=== PATIENT | male | born 1945 | race Caucasian/White ===

== ENCOUNTER 2019-04-28 23:57 | Inpatient (IN) ==
[~2019-04-28 23:57] MED LIST: ALBUTEROL NEB ONE
[2019-04-29 00:08] LABS: BE 8.7 mmoll (-3.0-3.0); BLOOD TYPE ARTERIAL; HCO3-(ACT) 31.7 mmoll (20.0-26.0); METHB 1.1 % (0.0-1.5); O2(CT) 22.2 mL/dL (15.0-23.0); O2HB 96.5 % (95.0-99.0); PO2(98.6) 460 mmHg (60-100); SAMPLE BLOOD; SAO2 99.2 % (95.0-100.0); THB 15.5 g/dL (11.5-17.4); pH(98.6) 7.33 (7.35-7.45)
[2019-04-29] MEDS ORDERED: ALBUTEROL NEB INH ONE (00:24)
[2019-04-29 00:33] LABS: ALLEN TEST NO; MODALITY BI PAP; PCO2(98.6) 72 mmHg (35-45)
[2019-04-29 01:19] LABS: BASO# 0.02 X1000 (0.0-0.2); BASO% 0.1 % (0.0-0.8); HEMATOCRIT 43.5 % (42.0-52.0); HEMOGLOBIN 13.5 g/dL (14.0-18.0); IMM GRAN# 0.06 X1000 (0.0-0.04); IMM GRAN% 0.4 % (0.0-0.5); LYMPH# 0.69 X1000 (1.2-3.4); LYMPH% 4.9 % (20.5-51.1); MCH 31.4 PG (27-31); MCV 101.2 FL (81-99); MONO# 0.77 X1000 (0.11-0.59); MONO% 5.4 % (1.7-9.3); MPV 8.7 FL (7.4-10.4); NEUT# 12.61 X1000 (1.4-6.5); NEUT% 89.2 % (42.2-75.2); PLT 312 X1000 (130-400); RDW 12.6 % (11.5-14.5); WBC 14.15 X1000 (4.8-10.8)
[2019-04-29 01:53] LABS: AGAP 18; ALBUMIN 3.9 g/dL (3.5-5.0); ALKALINE PHOSPHATASE 54 U/L (32-122); BUN 26 mg/dL (8-22); CALCIUM 8.9 mg/dL (8.8-10.2); CHLORIDE 96 mmol/L (98-107); COSMO 291; CREATININE 1.1 mg/dL (0.7-1.2); ESTIMATED GFR > 60; GLUCOSE 119 mg/dL (70-104); GOT 63 U/L (10-34); GPT 25 U/L (10-44); POTASSIUM 3.4 mmol/L (3.5-5.1); SODIUM 143 mmol/L (136-145); TCO2 29 mmol/L (25-35)
[2019-04-29 02:02] LABS: CK PROFILE 359 U/L (24-204)
[2019-04-29 02:05] LABS: UR AMPHETAMINES QUAL NONE DETECTED (NONE DETECT); UR BARBITUATES QUAL NONE DETECTED (NONE DETECT); UR BENZODIAZEPIN QUAL NONE DETECTED (NONE DETECT); UR CANNABINOIDS QUAL NONE DETECTED (NONE DETECT); UR COCAINE QUAL NONE DETECTED (NONE DETECT); UR METHADONE QUAL NONE DETECTED (NONE DETECT); UR METHAMPHETAMINE QUAL NONE DETECTED (NONE DETECT); UR OPIATES QUAL PRESUMPTIVE POSITIVE (NONE DETECT); UR OXYCODONE QUAL PRESUMPTIVE POSITIVE (NONE DETECT); UR PCP QUAL NONE DETECTED (NONE DETECT); UR PROPOXYPHENE QUAL NONE DETECTED (NONE DETECT); UR TCA QUAL NONE DETECTED (NONE DETECT)
[2019-04-29 02:19] LABS: CK INDEX 4.7 (0.0-2.5); CK-MB 16.94 ng/mL (0.0-5.0)
--- NOTE | 2019-04-29 02:28 | EKG Report ---
Test Performed on : 04/29/2019 02:12:22 AM Test Reason : SOB Blood Pressure : / mmHG Vent. Rate : 081 BPM Atrial Rate : 081 BPM P-R Int : 148 ms QRS Dur : 082 ms QT Int : 430 ms P-R-T Axes : 076 051 064 degrees QTc Int : 499 ms Sinus rhythm. with occasional premature ventricular complexes. and premature atrial complexes. T wave abnormality, consider anterior ischemia Abnormal ECG When compared with ECG of 08-JUL-2017 07:23, premature ventricular complexes. are now present premature atrial complexes. are now present Vent. rate has increased BY 27 BPM QT has lengthened Unconfirmed Result
--- NOTE | 2019-04-29 05:44 | Diag Imaging Result Doc PS360 ---
EXAM: CHEST-1 VIEW HISTORY: SOB TECHNIQUE: Single view COMPARISON: 08/14/2017 FINDINGS: The lungs are well expanded. The heart is not enlarged. The vessels are not distended. There are mild increased interstitial markings in the right lung base. No consolidation. No effusion identified. There are old left rib fractures. IMPRESSION: Right basilar atelectasis versus a small infiltrate. Electronically signed by Allen Hernandez 04/29/2019 5:42 AM
--- NOTE | 2019-04-29 05:45 | Diag Imaging Result Doc PS360 ---
EXAM: CHEST-PORTABLE HISTORY: status post attempt for central line TECHNIQUE: Single view COMPARISON: 1:14 AM FINDINGS: The appearance of the chest is unchanged since the prior exam. No central line is present. No pneumothorax identified. IMPRESSION: No postprocedural complications identified. Electronically signed by Allen Hernandez 04/29/2019 5:43 AM
[2019-04-29] MEDS ORDERED: NS 250 ML ONE (08:01)
[2019-04-29] MEDS ORDERED: TYLENOL PO PRN (08:22)
[2019-04-29] MEDS ORDERED: ZOFRAN IV PRN (08:22)
[2019-04-29] MEDS ORDERED: SALINE LOCK IV FLUID XX ONE (08:22)
[2019-04-29] MEDS ORDERED: NS 1,000 ML IV SCH (08:30)
[2019-04-29] MEDS ORDERED: LASIX IV ONE ×2 (08:36→09:38)
[2019-04-29] MEDS ORDERED: SOLU-MEDROL IV ONE (09:00)
[2019-04-29] MEDS ORDERED: HYDROCODONE BITARTRATE PO SCH (09:00)
--- NOTE | 2019-04-29 09:18 | EKG Report ---
Test Performed on : 04/29/2019 09:11:57 AM Test Reason : sob Blood Pressure : / mmHG Vent. Rate : 074 BPM Atrial Rate : 074 BPM P-R Int : 144 ms QRS Dur : 088 ms QT Int : 502 ms P-R-T Axes : 091 075 075 degrees QTc Int : 557 ms Normal sinus rhythm. Prolonged QT Abnormal ECG When compared with ECG of 29-APR-2019 02:12, (Unconfirmed) premature ventricular complexes. are no longer present premature atrial complexes. are no longer present QT has lengthened Confirmed by Soha Trevino MD ([id number]) on 04/29/2019 4:20:31 PM
[2019-04-29] MEDS: ROCEPHIN 1 GM in NS 50 ML IV SCH (09:41)
[2019-04-29] MEDS: CRESTOR PO SCH (09:42)
[2019-04-29] MEDS: ASPIRIN EC PO SCH (09:42)
[2019-04-29] MEDS: NORCO-10 PO PRN ×3 (09:42→20:35)
[2019-04-29] MEDS: ZANAFLEX PO SCH ×3 (09:42→20:32)
[2019-04-29] MEDS: LOVENOX SUBQ SCH (09:46)
[2019-04-29] MEDS ORDERED: LEVAQUIN 750 MG/D5W 750 MG/150 ML IVPB IV SCH (10:30)
[2019-04-29 10:36] LABS: HEMOGLOBIN A1C 5.3 % (4.8-6.0)
[2019-04-29] MEDS: DUONEB (A & A) INH SCH ×4 (10:43→23:28)
[2019-04-29 10:49] LABS: TSH 0.3 uIUmL (0.27-4.20)
[2019-04-29 10:53] LABS: CK-MB 13.01 ng/mL (0.0-5.0); FREE T4 1.95 ng/dL (0.93-1.70)
--- NOTE | 2019-04-29 12:12 | HISTORY AND PHYSICAL ---
ADDENDUM REPORT: The patient is seen and examined by me face to face. Laboratory, vital signs, and images were reviewed. The patient presented and was admitted due to shortness of breath. Chest x-ray showed right basilar atelectasis versus small infiltrate. As per the patient, he has been coughing up phlegm since last Sunday, and he has been feeling short of breath since last Sunday as well. Normally he uses oxygen at home. He has a strong history of COPD. He has been placed on the BiPAP machine. He is hypercarbic, and he was also admitted due to hypoxemic respiratory failure. It is reported that the oxygen was around 76. We will continue with the BiPAP treatment. We will continue with steroids, antibiotics, breathing treatment, pulmonary toilet. Pulmonary Department has been consulted. We will monitor this patient closely in the ICU. I agree with the rest of the nurse practitioner's Assessment and Plan. cc: Yobani Catherine MD
--- NOTE | 2019-04-29 12:56 | HISTORY AND PHYSICAL ---
PRIMARY CARE PROVIDER: Dr. Kathleen Madrigal. PRIMARY PAIN PHYSICIAN: Dr. Perez in [place]. CHIEF COMPLAINT: Shortness of breath. HISTORY OF PRESENT ILLNESS: Mr. Chandan Levine is a 73-year-old male with a medical history of COPD on home oxygen, CKD stage III, hypertension, chronic pain syndrome, hyperlipidemia, who presents with complaints of shortness of breath. He states on Sunday, which is around 5 days ago, he started having weakness, decreased appetite, increased shortness of breath, was having productive green-brown phlegm and noticed that he had lower extremity swelling. He denied any chest pain, fevers. No nausea, vomiting, or diarrhea. Essentially no other symptoms other than he could not really lay flat to sleep. Here he is found on his chest x-ray to have right basilar infiltrate, elevated white blood cell count. He is also having significant increased work of breathing requiring BiPAP ventilation and he also had a significant elevation in his proBNP. There was elevation in his troponin; however, he did deny chest pain. He does have shortness of breath and lower extremity edema. He was transferred from [facility] to the ICU here at [facility] and we will continue to evaluate and treat. PAST MEDICAL HISTORY: 1. Skin cancer. 2. Hypertension. 3. COPD on 2 L home oxygen. 4. CKD stage III. 5. Chronic pain syndrome. 6. Hyperlipidemia. PAST SURGICAL HISTORY: 1. Bilateral inguinal hernia repairs. 2. Skin cancer excision on the face. 3. Cervical radiofrequency ablation of C4, 5 and 6. SOCIAL HISTORY: Quit smoking in 1998. At that time, he smoked less than 2 packs per day. He started at the age of 14. He continues to dip 1 can about every 3 to 4 days. No alcohol. No illicit drug use. He does not work, not , no kids, and states he has no difficulties with walking. FAMILY HISTORY: Mother had a heart attack at 56 and it killed her. Father from alcoholism. ALLERGIES: No known drug allergies. HOME MEDICATIONS: 1. Neurontin 400 mg p.o. every 8 hours. 2. Aspirin 81 mg p.o. daily. 3. Albuterol Respimat 20-100 mcg inhaled 4 times a day. 4. Hydrocodone bitartrate extended release 20 mg p.o. daily. 5. Ibuprofen 800 mg p.o. t.i.d. 6. [place] 10 one tablet p.o. 4 times a day. 7. Rosuvastatin 40 mg p.o. daily. 8. Vascepa 2 capsules p.o. twice daily. 9. Zanaflex 4 mg p.o. t.i.d. REVIEW OF SYSTEMS: Fourteen point review of systems are complete and all were negative except for those mentioned in above HPI. PHYSICAL EXAMINATION: VITAL SIGNS: Temperature 98 degrees, heart rate 80, respiratory rate 18, blood pressure 151/94, O2 saturation 100% on BiPAP. GENERAL: Mr. Chandan Levine is a 73-year-old male. He is in no acute distress. He is able answer questions appropriately. HEENT: Atraumatic, normocephalic. Pupils equal, round, reactive to light. Extraocular movements intact. Mucous membranes are dry. NECK: Trachea midline. CARDIOVASCULAR: S1, S2. Regular rate and rhythm. No rubs, gallops, murmurs. He has 1+ lower extremity edema. He has +2 dorsalis and radial pulses. Negative for JVD or carotid bruits at 20 degree incline. PULMONARY: Inspiratory wheezes anteriorly noted throughout. Tolerating BiPAP. No accessory muscle use or work of breathing noted. He does have somewhat of a barrel chest for a small frame. GASTROINTESTINAL: Soft, nontender, nondistended. Positive bowel sounds x4. EXTREMITIES: Moves all extremities equally. Full range of motion. NEUROLOGIC: Alert and oriented x3. Follows commands. Sensory is intact. SKIN: Warm, dry, intact. LABORATORY DATA: White blood cells 14,000, hemoglobin 13, hematocrit 43, platelet count 312,000. ABGs, pH 7.33, pCO2 of 72, PO2 460, bicarb is 31, base excess is 8.7, saturation 96%. Lactate was 2.3, BiPAP 100%, 18/6. Sodium 143, potassium 3.4, BUN 26, creatinine is 1.1, glucose 119, calcium 8.9. Bilirubin is 1.00, AST 63, ALT 25. CK 258, MB is 16. Troponin initially was 138, it dropped down to 121. CRP is 32. ProBNP is 21,713. Albumin 3.9. Triglycerides 116, cholesterol total is 81, LDL 19, HDL 39. Serum lactate is 1.0. Urine drug screen positive for opiates and oxycodone. IMAGING: Chest x-ray, right basilar atelectasis versus a small infiltrate. First EKG, normal sinus rhythm, rate 81, QTc is 499. There were PVCs and PACs and no ST elevations. This morning at 8:36, normal sinus rhythm, rate 74, QTc was up to 557. There were no PACs or PVCs on this one, no ST elevations or depressions. ASSESSMENT AND PLAN: 1. Chronic obstructive pulmonary disease exacerbation requiring BiPAP. We will do steroids, nebulizers and antibiotics. 2. Right basilar pneumonia with leukocytosis and originally with mild sepsis, the lactate was 2.3 but that has improved, it is back to normal. Again, he is on antibiotics, originally it was Rocephin and Levaquin ordered, but the Levaquin has been discontinued secondary to the prolonged QTc, and we will get a sputum culture. 3. Possibly acute congestive heart failure. He does not have a history of it, but he has lower extremity edema and he has an elevated proBNP. He denied any chest pain, just shortness of breath and lower extremity edema. Gave him a 1 time dose of 40 of Lasix. 4. Chronic pain syndrome. We will continue home medications. We will hold off on the ibuprofen. 5. Hyperlipidemia. Continue Vascepa and the statin. 6. Deep venous thrombosis prophylaxis. Lovenox. Dictated by MARY JO Luna for Yobani Catherine MD cc: MARY JO Luna MD
[2019-04-29] MEDS: ICOSAPENT ETHYL PO SCH ×2 (13:10→20:32)
[2019-04-29] MEDS: NEURONTIN PO SCH ×2 (14:03→20:32)
[2019-04-29] MEDS: ZITHROMAX 500 MG/NS 500 MG/250 ML IVPB IV SCH (14:03)
--- NOTE | 2019-04-29 15:03 | PULMONOLOGY CONSULTATION ---
DATE: 04/29/2019 REQUESTING PROVIDER: MARY JO Luna. REASON FOR CONSULTATION: Respiratory failure, on BiPAP. HISTORY OF PRESENT ILLNESS: This is a 73-year-old, male with a medical history of COPD, on continuous home oxygen therapy, hypertension, polysubstance abuse, chronic kidney disease, hepatitis C, anisocoria, chronic pain syndrome, hyperlipidemia, and skin cancer. He presents today complaining of shortness of breath with productive green-brown phlegm and bilateral lower extremity edema for 5 days. Initial workup in the ER revealed COPD exacerbation, right basilar pneumonia with leukocytosis, mild sepsis, and possible acute congestive heart failure. He was transferred from [place] [facility] to ICU in our facility for further evaluation and management. The patient has been on BiPAP since presentation. He has been on Levaquin and ceftriaxone with IV Solu- Medrol, diuretic and DuoNeb. ABG this morning showed respiratory acidosis with hypercapnia, elevated troponin T high-sensitivity which is trending down slowly, elevated C- reactive protein, creatine kinase, CK-MB, free T4, and leukocytosis. His proBNP is up to 21,713. The patient is lying in bed, on a BiPAP mask, with no acute distress noted at this time. He is awake and alert. He reports general weakness, poor appetite, shortness of breath, productive cough, and pedal edema, but no chest pain, fever, nausea, vomiting, bowel habit change, urination discomfort. He also has orthopnea, and he cannot tolerate lying flat. PAST MEDICAL/SURGICAL HISTORY: 1. Chronic obstructive pulmonary disease, on continuous home oxygen at 2 L. 2. Hypertension. 3. Polysubstance abuse, including alcohol abuse. 4. Chronic kidney disease, stage III. 5. History of skin cancer, status post skin cancer removal. 6. History of hepatitis C, diagnosed on 07/17/2017. 7. Anisocoria. 8. Chronic pain syndrome, on hydrocodone and [place] at home. 9. Hyperlipidemia. 10. Status post hernia repair. 11. Status post EGD with biopsy secondary to history of GI bleeding. SOCIAL HISTORY: The patient is a former smoker, and quit smoking in 1998. He used to smoke less than 2 packs per day since age of 14. He continues to dip 1 can about every 3 to 4 days. He does have history of alcohol abuse and polysubstance abuse. He does not work. He is not . He has no kids. FAMILY HISTORY: Positive for heart disease and alcoholism. ALLERGIES: No known drug allergies. REVIEW OF SYSTEMS: A 10-point review of systems was conducted, and the pertinent is listed within the HPI, otherwise noncontributory. PHYSICAL EXAMINATION: Vital Signs: Temperature 98.8 degrees, blood pressure 130/88, pulse 78, respiratory rate 17, oxygen saturation 100% on BiPAP 50%, 18/6. General: Lying in bed on a BiPAP mask. No acute distress noted. Able to answer questions appropriately. HEENT: Atraumatic, normocephalic. Trachea midline. Mucosa pink and moist. Respiratory: Even and unlabored. Symmetrical excursion. Auscultation revealed diminished breathing sounds bilaterally. Cardiovascular: Regular rate and rhythm with S1 and S2 appreciated. Gastrointestinal: Soft, nontender, obese. Bowel sounds active in all 4 quadrants. Extremities: No pedal edema. No cyanosis. No clubbing. Neurologic: Alert and oriented x3. Speech fluent. Follows commands. Neurologic: Awake and alert, able to answer simple questions and follow simple commands. Speech fluent. LABORATORY DATA: White blood cells 14.15, hemoglobin 14.5, hematocrit 43.5, platelets 312,000. Sodium 143, potassium 3.4, chloride 96, carbon dioxide 29, BUN 26, creatinine 1.1, glucose 119. Creatine kinase 258. CK-MB 13.01. Troponin T high-sensitivity 121. C-reactive protein 32.58. ProBNP 21,713. Free T4 of 1.95. Drug screen showed positive for opium and oxycodone. IMAGING DATA: Chest x-ray early this morning showed right basilar atelectasis versus small infiltrate. ASSESSMENT: This is a 73-year-old, male with a medical history of chronic obstructive pulmonary disease on continuous home oxygen therapy, hypertension, polysubstance abuse, including alcohol abuse, chronic kidney disease stage 3, skin cancer, hepatitis C, anisocoria, chronic pain syndrome, and hyperlipidemia. He has been admitted from [place] [facility] to intensive care unit in our facility with chronic obstructive pulmonary disease exacerbation, right basilar pneumonia with leukocytosis, possible acute congestive heart failure, with proBNP elevation and troponin T high-sensitivity elevation. 1. Acute on chronic hypoxemic respiratory failure. 2. Acute hypercapnic respiratory failure. 3. Chronic obstructive pulmonary disease exacerbation. 4. Suspected right basilar pneumonia versus right basilar atelectasis based on the chest x-ray. 5. Acute on chronic congestive heart failure. PLAN: 1. Supplemental oxygen with BiPAP at bedtime as needed. We titrated oxygen and BiPAP setting to the patient's needs per clinical protocol. Will monitor the patient's response closely. 2. Antibiotics, including azithromycin and ceftriaxone. Levaquin has been discontinued, and azithromycin started from today. 3. IV Solu-Medrol has been ordered. 4. Diuresis with Lasix as tolerated. 5. Echocardiogram has been ordered. 6. Follow up with ABG, CBC, CMP, series of lactic plasma, series of CK profile, troponin T high- sensitivity, sputum culture, blood culture, and chest x-ray. 7. Will start Cardiology consultation. 8. Further recommendations pending hospital course. Thank you for the courtesy of this consult. Dr. Colón did the examination, evaluation, management, and orders. MARY JO did the dictation for Dr. Colón according to direction. Total evaluation time in minutes: 33. Dictated by MARY JO Michelle for Jaz Colón MD cc: MARY JO Michelle MD [facility]
[2019-04-29] MEDS: SOLU-MEDROL IV SCH (17:02)
[2019-04-29 17:26] LABS: URINE SOURCE CATH
[2019-04-29 17:55] LABS: BILIRUBIN URINE NEGATIVE (NEGATIVE); BLOOD URINE MODERATE (NEGATIVE); COLOR ORANGE; GLUCOSE URINE NEGATIVE (NEGATIVE); KETONE URINE NEGATIVE (NEGATIVE); LEUKOCYTES URINE LARGE (NEGATIVE); NITRITE URINE POSITIVE (NEGATIVE); PH URINE 7.5; PROTEIN URINE 100 mg/dL (NEGATIVE); SP GRAVITY URINE 1.008; TURBIDITY URINE TURBID (CLEAR); UROBILINOGEN URINE NORMAL (NORMAL)
[2019-04-29 18:16] LABS: UR EPITHELIAL CELLS >10 /HPF (<10); URINE BACTERIA 4+ /HPF; URINE RBC 20-40 /HPF (<10); URINE WBC TNTC /HPF (<10)
[2019-04-29 18:17] LABS: URINE CASTS GRANULAR PRESENT; URINE CRYSTALS TRIPLE PHOS PRESENT; URINE YEAST NONE SEEN
[2019-04-29 18:18] LABS: URINE SMALL ROUND CELLS NONE SEEN
--- NOTE | 2019-04-29 18:40 | CARDIOLOGY CONSULTATION ---
DATE: 04/29/2019 CONSULTATION REQUESTED BY: Hospitalist service. REASON FOR CONSULT: Reason is dyspnea, abnormal troponin. HISTORY OF PRESENT ILLNESS: Mr. Levine is a 73-year-old male who presents to the emergency room with increasing dyspnea for several days. He has become very weak. He has not experienced any specific chest pain or angina. Upon presentation they did the usual round of testing including an EKG that shows some abnormal repolarization in the right precordial leads. Chest x-ray shows right basilar atelectasis versus small infiltrate. [place] [address] mcg/mL. His C-reactive protein was 32.58 mg/L. CPK 258, index was 5%, troponin high sensitivity 121 ng/L. Prior hospital admission in July 2017. The patient's proBNP level back then was not checked. His CPK back then was very high at 8385 on admission and then it went down to 672 units. CK index back then was 1.8%. Troponins back then were elevated at 0.781, then 0.544 and the last one was 0.322. His EKGs at that time showed some abnormality in leads V1, V2. At any rate, the patient has been given a BiPAP mask because his blood gases on this admission showed a PCO2 of 72 mmHg, pH is 7.33. He is in ICU, undergoing respiratory management. PAST MEDICAL HISTORY: Positive for advanced COPD. He also has hypertension, chronic pain syndrome, hyperlipidemia, and hepatitis C which to our knowledge has not been treated. SURGICAL HISTORY: He has had inguinal hernia repair. Skin cancer excision and cervical radiofrequency ablation of C4-5 and 6. SOCIAL HISTORY: He is and disabled. Lives at home. He is a smoker, quit in 1998. FAMILY HISTORY: Mother had myocardial infarction. Father had no coronary disease. ALLERGIES: Negative. HOME MEDICATIONS: Listed at the time of this admission included aspirin 81 mg daily, gabapentin 400 every 8 hours, hydrocodone extended release daily, ibuprofen 800 three times a day, rosuvastatin 40 mg daily, tizanidine 4 mg 3 times a day. REVIEW OF SYSTEMS: He has no specific history of VA or acute coronary syndrome or CHF. Prior CT scans of the chest have been done. The last one on record is from 2014. They reported the presence of coronary artery calcification back then. So, the patient probably has some degree of coronary atherosclerosis. PHYSICAL EXAMINATION: Vital signs: Blood pressure is 118/73, pulse 63, respirations 14, temperature 96 degrees. The patient is awake, follows commands. He has a BiPAP system. HEENT: Unremarkable. Chest: Diminished breath sounds diffusely. Heart: Sounds are distant, regular. No gallop or murmurs noted. Abdomen: Soft, nontender. Extremities: Showed no obvious edema. Pulses are diminished. Neurologic: Nonfocal. Moves 4 extremities. IMPRESSION: 1. Patient who presents with respiratory failure, hypercarbic. He is on a BiPAP system. 2. Elevation of cardiac enzymes. This is more than likely a marker of the presence of coronary atherosclerosis. At this time, the patient really does not seem to have an acute coronary syndrome. 3. Hypertension. 4. Tobacco user with advanced chronic obstructive pulmonary disease. 5. Hyperlipidemia. 6. Hepatitis C, active, untreated. 7. Chronic pain syndrome. RECOMMENDATION: At this time, I will suggest to do follow-up EKG. I believe they have ordered an echocardiogram. We will review it. The cardiac enzymes will be rechecked in the morning. We will do a followup EKG. Further advice will be forthcoming. Unless there is a clear indication of wall motion abnormality on the echo or further ischemic changes on the EKG with further rise on the CPK and troponins, at this time we are not going to carol ischemic workup. The patient will be referred back to his usual doctors for subsequent follow-up thereafter. Please call us if you have any questions or concerns. cc: Saleem Giron MD MTDD
[2019-04-29] MEDS: PULMICORT INH SCH (19:48)
--- NOTE | 2019-04-29 23:28 | ECHO REPORT ---
ORDER DATE: 04/29/2019 MEASUREMENTS: Septal thickness 1.1, left ventricular internal diameter in diastole 3.4, posterior wall thickness 1.1. Left ventricular internal diameter in systole 2.4, aortic root 3.2, left atrium 3.4. SUMMARY: 1. Technically difficult study due to limited acoustic window quality. 2. Aortic valve is trileaflet and opens normally on 2-dimensional images. Peak gradient across the aortic valve is less than 5 mmHg. Mitral, tricuspid and pulmonic valves are without evidence of structural abnormality. There is trace tricuspid regurgitation. The aortic root is normal in size. 3. Normal left ventricular chamber size with borderline concentric left ventricular hypertrophy is demonstrated. The estimated left ventricular ejection fraction appears to be at least 60%. No regional wall motion abnormality is evident. Doppler suggests grade 1 left ventricular diastolic dysfunction. The right ventricle appears mildly enlarged with grossly preserved right ventricular systolic function. The right atrium appears mildly enlarged. The left atrium is normal in size. 4. No pericardial effusion. 5. Appearance of inferior vena cava suggests elevated central venous pressure. cc: MD Odessa Baig CRNP
[2019-04-30] MEDS: SOLU-MEDROL IV SCH ×3 (02:36→17:09)
[2019-04-30] MEDS: DUONEB (A & A) INH SCH ×6 (03:10→23:12)
[2019-04-30] MEDS: NEURONTIN PO SCH ×3 (04:31→20:11)
[2019-04-30] MEDS: NORCO-10 PO PRN ×4 (04:31→20:15)
[2019-04-30 04:46] LABS: ALLEN TEST YES; BE 16.9 mmoll (-3.0-3.0); BLOOD TYPE ARTERIAL; HCO3-(ACT) 38.1 mmoll (20.0-26.0); METHB 0.9 % (0.0-1.5); O2(CT) 18.1 mL/dL (15.0-23.0); O2HB 96.3 % (95.0-99.0); PO2(98.6) 99 mmHg (60-100); SAMPLE BLOOD; SAO2 98.3 % (95.0-100.0); THB 13.3 g/dL (11.5-17.4); pH(98.6) 7.47 (7.35-7.45)
[2019-04-30 04:57] LABS: PCO2(98.6) 60 mmHg (35-45)
[2019-04-30 04:58] LABS: MODALITY BI PAP
[2019-04-30 05:32] LABS: BASO# 0.01 X1000 (0.0-0.2); BASO% 0.2 % (0.0-0.8); HEMATOCRIT 38.6 % (42.0-52.0); HEMOGLOBIN 12.1 g/dL (14.0-18.0); IMM GRAN# 0.02 X1000 (0.0-0.04); IMM GRAN% 0.3 % (0.0-0.5); LYMPH# 0.24 X1000 (1.2-3.4); LYMPH% 4.1 % (20.5-51.1); MCH 31.6 PG (27-31); MCHC 31.3 g/dL (33-37); MCV 100.8 FL (81-99); MONO# 0.14 X1000 (0.11-0.59); MONO% 2.4 % (1.7-9.3); MPV 8.9 FL (7.4-10.4); NEUT# 5.42 X1000 (1.4-6.5); PLT 223 X1000 (130-400); RBC 3.83 XMIL (4.7-6.1); RDW 12.5 % (11.5-14.5); WBC 5.83 X1000 (4.8-10.8)
[2019-04-30 05:58] LABS: ALBUMIN 3.5 g/dL (3.5-5.0); CALCIUM 8.6 mg/dL (8.8-10.2); CREATININE 1.4 mg/dL (0.7-1.2); POTASSIUM 2.9 mmol/L (3.5-5.1); TOTAL BILIRUBIN 0.45 mg/dL (0.20-1.00); TOTAL PROTEIN 6.9 g/dL (6.3-8.3)
[2019-04-30] MEDS: PROTONIX PO SCH (06:00)
[2019-04-30] MEDS ORDERED: KLOR-CON PO ONE (06:45)
--- NOTE | 2019-04-30 07:21 | EKG Report ---
Test Performed on : 04/30/2019 06:38:07 AM Test Reason : dyspnea Blood Pressure : / mmHG Vent. Rate : 066 BPM Atrial Rate : 066 BPM P-R Int : 126 ms QRS Dur : 094 ms QT Int : 510 ms P-R-T Axes : 090 100 095 degrees QTc Int : 534 ms Suspect arm lead reversal, interpretation assumes no reversal Normal sinus rhythm. Rightward axis ST & T wave abnormality, consider anterior ischemia Prolonged QT Abnormal ECG When compared with ECG of 29-APR-2019 09:11, No significant change was found Confirmed by Soha Trevino MD ([id number]) on 04/30/2019 8:15:37 AM
[2019-04-30 07:25] LABS: LYMPHS 8 % (21-51); SEGS 92 % (42-75)
--- NOTE | 2019-04-30 07:27 | Diag Imaging Result Doc PS360 ---
CHEST-PORTABLE - 04/30/2019 INDICATION: dyspnea COMPARISON: 04/29/2019 FINDINGS: There is a right PICC line in good position with the catheter tip in the mid SVC. Stable hyperexpanded lungs compatible with COPD. There has been improvement in the faint scattered atelectasis in the lung bases. No substantial infiltrates. No pneumothorax or pleural effusion. Heart size is borderline enlarged. IMPRESSION: COPD with mild atelectasis or scarring in the lung bases. Electronically signed by London Xie 04/30/2019 7:25 AM
[2019-04-30] MEDS: PULMICORT INH SCH ×2 (07:53→19:25)
--- NOTE | 2019-04-30 07:53 | PROGRESS NOTE ---
DATE: 04/30/2019 SUBJECTIVE: The patient seems to be feeling better today. He is breathing better. He is still wheezing bilaterally. His x-ray looks a little bit better compared with yesterday. He does have a severe COPD and he is on home O2. OBJECTIVE: Vital Signs: Temperature 97.9 degrees, pulse 77, respiratory rate 16, blood pressure 118/73, oxygen saturation 97% on 3 L of nasal cannula. HEENT: Head normocephalic, no trauma. PERRLA. Neck: Supple. I do not see JVD. Central trachea. Chest: Decreased breath sounds globally with prolonged expiratory phase. Coarse breath sounds mostly at the bases with expiratory wheezing. Abdomen: Soft, nontender, nondistended. No hepatosplenomegaly. Extremities: No edema, no clubbing, no cyanosis. Neurological exam: The patient is awake, he is alert, he is following commands. LABORATORY: WBC 5.8, hemoglobin 12.1, hematocrit 38.6, platelets 223. The pCO2 60. Sodium 142, potassium 2.9, chloride 90, bicarbonate 40. BUN 33, creatinine 1.4, glucose 177, calcium 8.6. AST 40, ALT 21, alkaline phosphatase 45. High sensitivity troponin 75. Albumin 3.5. ASSESSMENT AND PLAN: 1. Severe chronic obstructive pulmonary disease exacerbation. We will continue with the BiPAP machine as needed, breathing treatment, steroids, antibiotics. He does use oxygen at home around 2 to 3 liters. We will continue with same management. He seems to be feeling better. 2. Right basilar pneumonia with leukocytosis and sepsis on presentation. Continue antibiotics. He has been placed on ceftriaxone and azithromycin, which I will continue for now. White blood cell count improved. 3. Possible acute congestive heart failure. Probably he does have some diastolic dysfunction due to his severe chronic obstructive pulmonary disease. Echocardiogram showed a grade 1 left ventricular diastolic dysfunction. The right ventricle appears mildly enlarged with grossly preserved right ventricular systolic function. So, probably overall this issue is just related to the chronic obstructive pulmonary disease and pneumonia. 4. Polysubstance abuse including alcohol use. This patient has been highly advised against alcohol and polysubstance abuse. I will continue with daily cessation education. 5. His urinalysis showed bacteria, nitrates, and white blood cells as well. He has been placed on antibiotics. His urine culture is pending, but he does not have any symptoms at this moment. 6. Chronic pain syndrome. Continue home medications. 7. Hyperlipidemia. Continue with same management. 8. Deep vein thrombosis prophylaxis with Lovenox. 9. Chronic kidney disease. His creatinine is around his baseline. He has been up and down at least since 2013. 10. History of skin cancer, status post skin cancer removal. 11. History of hepatitis C diagnosed on 07/17/2017. I am not sure if this has been treated or not. 12. Hypertension, stable. cc: Yobani Catherine MD
[2019-04-30] MEDS: CRESTOR PO SCH (08:00)
[2019-04-30] MEDS: LOVENOX SUBQ SCH (08:00)
[2019-04-30] MEDS: ICOSAPENT ETHYL PO SCH ×2 (08:00→20:11)
[2019-04-30] MEDS: ASPIRIN EC PO SCH (08:01)
[2019-04-30] MEDS: ZANAFLEX PO SCH ×3 (08:01→20:11)
--- NOTE | 2019-04-30 08:33 | CARDIOLOGY PROGRESS NOTE ---
DATE: 04/30/2019 CHIEF COMPLAINT: Shortness of breath and elevation of troponin. SUBJECTIVE: The patient is breathing more comfortably this morning. He definitely feels better. He is on a Ventimask right now getting breathing treatments. OBJECTIVE: Vital signs: Blood pressure is 164/81, temperature 97.9, pulse 83, respirations 17. General: He is awake, alert, no distress. HEENT: Unremarkable. Chest: Diminished breath sounds with some rhonchi bilaterally. Heart: Sounds are regular and rhythmic. I do not hear a gallop or murmur. Abdomen: Nontender. Extremities: Show no edema. Neurologic exam: Follows commands, moves all 4 extremities. BLOOD WORK: Blood gases today: pO2 99, pCO2 60, pH 7.47. Sodium is 142, potassium 2.9, BUN is 33, creatinine 1.4. His troponin high-sensitivity is coming down to 75. Echocardiogram done yesterday shows normal ejection fraction of 60%, no wall motion abnormality. His EKG shows QT prolongation with marked T wave abnormality in precordial leads V1 through V3. That probably suggests right ventricular strain. He has a right axis on the EKG. IMPRESSION: Patient who presented with increasing dyspnea and elevation of troponin levels. Putting the case together, I believe this is probably right ventricular strain due to decompensated chronic obstructive pulmonary disease. He has hypercarbic respiratory failure. The patient has hypokalemia. Because of that and his abnormal EKG, we need to stop Zofran and be careful because he is on azithromycin. That combination of medications and low potassium may lead to serous ventricular arrhythmias. Potassium needs to be replaced. I will go ahead and put him on spironolactone for the next few days to make sure that his potassium remains within normal range. We will follow as needed. At this time given his normal ejection fraction and his hypercarbic respiratory failure, I do not think there is a need any further cardiac investigation. I would probably rely more on what the Pulmonary service has to do and say about his case. Call if you need me for any further intervention. cc: Saleem Giron MD
[2019-04-30] MEDS: ROCEPHIN 1 GM in NS 50 ML IV SCH (09:08)
[2019-04-30] MEDS: ALDACTONE PO SCH (09:08)
[2019-04-30] MEDS: ZITHROMAX 500 MG/NS 500 MG/250 ML IVPB IV SCH (11:05)
[2019-04-30 11:52] LABS: INR 1.06; PROTIME 13.9 Seconds (11.0-16.0)
[2019-04-30 11:53] LABS: PTT 34.2 Seconds (22.3-41.8)
--- NOTE | 2019-04-30 16:26 | PROVIDER PROGRESS NOTE ---
Progress Note Dr. Colón Progress Note/Pulmonary and or critical care Subjective: The patient is lying in bed on room air. He appears asleep, but very easily arousable. He states he is feeling better. He has been on VM 40% since early this morning and tolerates well. No family at the bedside. Input is appreciated from Dr. Martínez and other teams on the case. Objective: Vital Signs: T 97.9 (no fever in last 24 hours). DC 68, RR 18, BP 164/81 and SaO2 96% on VM 40%. I/O -870 ml Physical Examination: General: Lying in bed with no acute distress noted. HEENT: Normocephalic. Trachea midline. Mucosa pink and moist. Chest: Even and unlabored. Symmetrical excursion. Decreased air entry bilaterally. CVS: Regular rate and rhythm with S1 and S2 appreciated. Abdomen: Soft. Obese. Nontender. Normoactive bowel sounds noted. Extremities: No pedal edema. No cyanosis. No clubbing. Neuro: Awake and alert. Able to answer questions and follow commands. Labs and Radiology: Laboratory Results 04/29/19 04/29/19 04/29/19 09:50 17:15 17:26 WBC RBC Hgb Hct MCV MCH MCHC RDW Std Deviation Plt Count MPV Immature Gran % (Auto) Neut % (Auto) Lymph % (Auto) [place] % (Auto) Eos % (Auto) Baso % (Auto) Immature Gran # (Auto) Neut # (Auto) Lymph # (Auto) [place] # (Auto) Eos # (Auto) Baso # (Auto) Segmented Neutrophils Lymphocytes PT 13.9 INR 1.06 PTT (Actin FS) 34.2 Specimen Type Sample Site pH pCO2 pO2 HCO3 Base Excess Oxyhemoglobin ABG O2 Sat (Calculated) ABG O2 Saturation ABG Carboxyhemoglobin ABG Methemoglobin Kris Test A-a O2 Difference Total Hemoglobin Lactate Blood Gas Modality FiO2 % Inspiratory BiPAP Expiratory BiPAP Sodium Potassium Chloride Carbon Dioxide Anion Gap BUN Creatinine Estimated GFR/1.73 m2 BUN/Creatinine Ratio Glucose Calculated Osmolality Calcium Total Bilirubin AST ALT Alkaline Phosphatase Creatine Kinase 191 Troponin T High Sens Total Protein Albumin Globulin Albumin/Globulin Ratio Plasma Lactate Urine Source CATH Urine Color ORANGE Urine Turbidity TURBID Urine pH 7.5 Ur Specific [place] 1.008 Urine Protein 100 A Ur Glucose (Stick) NEGATIVE Ur Ketones (Stick) NEGATIVE Urine Blood MODERATE A Urine Nitrite POSITIVE A Urine Bilirubin NEGATIVE Urobilinogen Dipstick NORMAL Urine Leukocytes LARGE A Urine WBC (Auto) TNTC A Urine RBC (Auto) 20-40 A U Epithel Cells (Auto) >10 A Urine Bacteria (Auto) 4+ Urine Crystals TRIPLE PHOS PRESENT Small Round Cells NONE SEEN Urine Casts GRANULAR PRESENT Urine Yeast-like Cells NONE SEEN 04/29/19 04/30/19 04/30/19 17:26 04:23 04:23 WBC 5.83 RBC 3.83 L Hgb 12.1 L Hct 38.6 L MCV 100.8 H MCH 31.6 H MCHC 31.3 L RDW Std Deviation 12.5 Plt Count 223 MPV 8.9 Immature Gran % (Auto) 0.3 Neut % (Auto) 93.0 H Lymph % (Auto) 4.1 L [place] % (Auto) 2.4 Eos % (Auto) 0.0 Baso % (Auto) 0.2 Immature Gran # (Auto) 0.02 Neut # (Auto) 5.42 Lymph # (Auto) 0.24 L [place] # (Auto) 0.14 Eos # (Auto) 0.00 Baso # (Auto) 0.01 Segmented Neutrophils 92 H Lymphocytes 8 L PT INR PTT (Actin FS) Specimen Type Sample Site pH pCO2 pO2 HCO3 Base Excess Oxyhemoglobin ABG O2 Sat (Calculated) ABG O2 Saturation ABG Carboxyhemoglobin ABG Methemoglobin Kris Test A-a O2 Difference Total Hemoglobin Lactate Blood Gas Modality FiO2 % Inspiratory BiPAP Expiratory BiPAP Sodium 142 Potassium 2.9 L Chloride 90 L Carbon Dioxide 40 H Anion Gap 12 BUN 33 H Creatinine 1.4 H Estimated GFR/1.73 m2 50 BUN/Creatinine Ratio 24 Glucose 177 H Calculated Osmolality 295 Calcium 8.6 L Total Bilirubin 0.45 AST 40 H ALT 21 Alkaline Phosphatase 45 Creatine Kinase 116 Troponin T High Sens 97 H Total Protein 6.9 Albumin 3.5 Globulin 3.4 Albumin/Globulin Ratio 1.0 Plasma Lactate Urine Source Urine Color Urine Turbidity Urine pH Ur Specific [place] Urine Protein Ur Glucose (Stick) Ur Ketones (Stick) Urine Blood Urine Nitrite Urine Bilirubin Urobilinogen Dipstick Urine Leukocytes Urine WBC (Auto) Urine RBC (Auto) U Epithel Cells (Auto) Urine Bacteria (Auto) Urine Crystals Small Round Cells Urine Casts Urine Yeast-like Cells 02/04/30/19 04/30/19 04:23 04:36 09:50 WBC RBC Hgb Hct MCV MCH MCHC RDW Std Deviation Plt Count MPV Immature Gran % (Auto) Neut % (Auto) Lymph % (Auto) [place] % (Auto) Eos % (Auto) Baso % (Auto) Immature Gran # (Auto) Neut # (Auto) Lymph # (Auto) [place] # (Auto) Eos # (Auto) Baso # (Auto) Segmented Neutrophils Lymphocytes PT INR PTT (Actin FS) Specimen Type ARTERIAL Sample Site R RADIAL pH 7.47 H pCO2 60 H* pO2 99 HCO3 38.1 H Base Excess 16.9 H Oxyhemoglobin 96.3 ABG O2 Sat (Calculated) 18.1 ABG O2 Saturation 98.3 ABG Carboxyhemoglobin 1.10 ABG Methemoglobin 0.9 Kris Test YES A-a O2 Difference 111.0 Total Hemoglobin 13.3 Lactate 1.60 Blood Gas Modality BI PAP FiO2 % 40.0 Inspiratory BiPAP 18.0 Expiratory BiPAP 8.0 Sodium Potassium Chloride Carbon Dioxide Anion Gap BUN Creatinine Estimated GFR/1.73 m2 BUN/Creatinine Ratio Glucose Calculated Osmolality Calcium Total Bilirubin AST ALT Alkaline Phosphatase Creatine Kinase Troponin T High Sens 75 H Total Protein Albumin Globulin Albumin/Globulin Ratio Plasma Lactate 1.6 Urine Source Urine Color Urine Turbidity Urine pH Ur Specific [place] Urine Protein Ur Glucose (Stick) Ur Ketones (Stick) Urine Blood Urine Nitrite Urine Bilirubin Urobilinogen Dipstick Urine Leukocytes Urine WBC (Auto) Urine RBC (Auto) U Epithel Cells (Auto) Urine Bacteria (Auto) Urine Crystals Small Round Cells Urine Casts Urine Yeast-like Cells 04/30/19 04/30/19 11:52 15:26 WBC RBC Hgb Hct MCV MCH MCHC RDW Std Deviation Plt Count MPV Immature Gran % (Auto) Neut % (Auto) Lymph % (Auto) [place] % (Auto) Eos % (Auto) Baso % (Auto) Immature Gran # (Auto) Neut # (Auto) Lymph # (Auto) [place] # (Auto) Eos # (Auto) Baso # (Auto) Segmented Neutrophils Lymphocytes PT INR PTT (Actin FS) Specimen Type Sample Site pH pCO2 pO2 HCO3 Base Excess Oxyhemoglobin ABG O2 Sat (Calculated) ABG O2 Saturation ABG Carboxyhemoglobin ABG Methemoglobin Kris Test A-a O2 Difference Total Hemoglobin Lactate Blood Gas Modality FiO2 % Inspiratory BiPAP Expiratory BiPAP Sodium Potassium Chloride Carbon Dioxide Anion Gap BUN Creatinine Estimated GFR/1.73 m2 BUN/Creatinine Ratio Glucose Calculated Osmolality Calcium Total Bilirubin AST ALT Alkaline Phosphatase Creatine Kinase Troponin T High Sens Total Protein Albumin Globulin Albumin/Globulin Ratio Plasma Lactate 1.5 1.5 Urine Source Urine Color Urine Turbidity Urine pH Ur Specific [place] Urine Protein Ur Glucose (Stick) Ur Ketones (Stick) Urine Blood Urine Nitrite Urine Bilirubin Urobilinogen Dipstick Urine Leukocytes Urine WBC (Auto) Urine RBC (Auto) U Epithel Cells (Auto) Urine Bacteria (Auto) Urine Crystals Small Round Cells Urine Casts Urine Yeast-like Cells Assessment: Acute on chronic hypoxemic respiratory failure. Improving. Patient tolerates VM 40% at this time. Acute hypercapnic respiratory failure. Improving. COPD exacerbation. Suspected right basilar pneumonia vs. right basilar atelectasis. CXR today shows COPD with mild atelectasis/scarring in the lung bases. Probable right ventricular strain secondary to decompensated COPD and hypercapnic respiratory failure. Acute on chronic kidney disease. Prognosis is guarded. Plan: Supplemental oxygen with BiPAP at bedtime and as needed. We titrated oxygen and BiPAP settings to the patients needs per clinical protocol. We will monitor patients response closely. Antibiotics including azithromycin and ceftriaxone. IV solu-medrol. GI and DVT prophylaxis. We will follow up ABG tomorrow. Evaluation time in minutes: 31 minutes.
[2019-04-30] MEDS ORDERED: DUONEB (A & A) INH PRN (21:14)
--- NOTE | 2019-04-30 21:43 | Diag Imaging Result Doc PS360 ---
EXAM: CHEST-PORTABLE 04/30/2019 HISTORY: SOB/retracting breathing TECHNIQUE: AP portable at 2118 COMMENT: There are multiple old rib fractures on the left. The heart size is slightly enlarged. There is some fibrotic globe changer both lung bases. No focal pulmonary opacities are present. The appearance the chest has not changed significantly since 04/30/2019 at 0507. IMPRESSION: Stable chest. Electronically signed by Jay Moraes 04/30/2019 9:41 PM
[2019-05-01] MEDS: SOLU-MEDROL IV SCH ×3 (02:33→17:58)
[2019-05-01] MEDS: DUONEB (A & A) INH SCH ×6 (03:05→23:25)
[2019-05-01] MEDS: NORCO-10 PO PRN ×3 (03:06→12:57)
[2019-05-01 04:31] LABS: ALLEN TEST YES; BE 15.6 mmoll (-3.0-3.0); BLOOD TYPE ARTERIAL; PO2(98.6) 72 mmHg (60-100); SAMPLE BLOOD; pH(98.6) 7.42 (7.35-7.45)
[2019-05-01 04:36] LABS: MODALITY CANNULA; PCO2(98.6) 67 mmHg (35-45)
[2019-05-01] MEDS: NEURONTIN PO SCH ×3 (06:19→20:32)
[2019-05-01] MEDS: PROTONIX PO SCH (07:01)
[2019-05-01 07:03] LABS: HEMATOCRIT 38.7 % (42.0-52.0); HEMOGLOBIN 11.9 g/dL (14.0-18.0); IMM GRAN# 0.02 X1000 (0.0-0.04); IMM GRAN% 0.2 % (0.0-0.5); LYMPH# 0.27 X1000 (1.2-3.4); LYMPH% 2.1 % (20.5-51.1); MCH 31.4 PG (27-31); MCHC 30.7 g/dL (33-37); MCV 102.1 FL (81-99); MONO# 0.35 X1000 (0.11-0.59); MONO% 2.8 % (1.7-9.3); MPV 9.2 FL (7.4-10.4); NEUT# 12.07 X1000 (1.4-6.5); NEUT% 94.9 % (42.2-75.2); PLT 234 X1000 (130-400); RBC 3.79 XMIL (4.7-6.1); RDW 12.6 % (11.5-14.5); WBC 12.71 X1000 (4.8-10.8)
[2019-05-01 07:20] LABS: ALB/GLOB RATIO 1.1; ALBUMIN 3.5 g/dL (3.5-5.0); CREATININE 1.2 mg/dL (0.7-1.2); POTASSIUM 3.1 mmol/L (3.5-5.1); TOTAL BILIRUBIN 0.34 mg/dL (0.20-1.00); TOTAL PROTEIN 6.8 g/dL (6.3-8.3)
[2019-05-01 07:39] LABS: IRON SATURATION 21 %; TIBC 213 ug/dL; TOTAL IRON 44 ug/dL (53-167); UNBOUND IRON 169 ug/dL (112-346)
[2019-05-01 07:58] LABS: FERRITIN 315 ng/mL (30-400)
[2019-05-01] MEDS: PULMICORT INH SCH ×2 (08:12→19:36)
[2019-05-01] MEDS: ZANAFLEX PO SCH ×3 (08:15→20:32)
[2019-05-01] MEDS: ALDACTONE PO SCH (08:15)
[2019-05-01] MEDS: CRESTOR PO SCH (08:15)
[2019-05-01] MEDS: LOVENOX SUBQ SCH (08:15)
[2019-05-01] MEDS: ICOSAPENT ETHYL PO SCH ×2 (08:15→20:32)
[2019-05-01] MEDS: ASPIRIN EC PO SCH (08:15)
[2019-05-01] MEDS: PATIENT'S OWN MED PO SCH (08:20)
[2019-05-01] MEDS: ROCEPHIN 1 GM in NS 50 ML IV SCH (09:23)
--- NOTE | 2019-05-01 11:38 | Diag Imaging Result Doc PS360 ---
EXAM: LUNG SCAN / VQ 05/01/2019 HISTORY: CTEPH TECHNIQUE: Ablation perfusion lung scan, 40.6 mCi of technetium 99m DTPA aerosol and 5.9 mCi of technetium 99m MAA intravenously. COMMENT: There is markedly heterogeneous distribution of tracer on both the ventilation and perfusion scan. This is likely due to clumping of activity on the ventilation study. There are no apparent absolute perfusion defects present. IMPRESSION: Technically suboptimal study. Low probability for pulmonary embolus. Electronically signed by Jay Moraes 05/01/2019 11:36 AM
[2019-05-01] MEDS: ZITHROMAX 500 MG/NS 500 MG/250 ML IVPB IV SCH (12:52)
--- NOTE | 2019-05-01 13:37 | PROGRESS NOTE ---
DATE: 05/01/2019 SUBJECTIVE: I have seen and examined Mr. Levine today. Mr. Levine refers to be feeling a lot better. He said his shortness of breath is getting better. He is not coughing and he denies any fever. OBJECTIVE: Vital signs: Blood pressure is 157/98, pulse of 96, respirations 23, temperature is 99 degrees. Patient is saturating 92% on 4 L. Of note, Mr. Levine normally used 2 L at home. General: Mr. Levine is a 73-year-old elderly gentleman. He is in bed. He is in mild respiratory distress. HEENT: Mucosa is pink and moist. Anicteric. Acyanotic. Neck: Supple. Chest: Air entry is bilaterally reduced. There is prolonged expiratory phase of respiration. There is also diffuse wheezing on expiration. Cardiovascular: Regular rate and rhythm. No murmurs, no rubs, no gallops. Gastrointestinal: Abdomen is soft, mildly tender in the right upper quadrant. There is a questionable hepatojugular reflux. Extremities: Trace pedal edema. 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 LABORATORY DATA: WBC is 12.71, hemoglobin is 11.9, platelet count of 234,000. Chemistry is also reviewed, potassium is 3.1, rest of chemistry is unremarkable. Folate is 6.2. The patient's urinalysis is showing gram-negative abhilash. CURRENT MEDICATIONS: Have all been reviewed. ASSESSMENT: 1. [id number] hypoxemic respiratory failure. 2. Acute hypercarbic respiratory failure. 3. Chronic obstructive pulmonary disease , in [id number] exacerbation. 4. Right basilar infiltrate concerning for pneumonia. 5. Right ventricle enlargement on echocardiogram associated with inferior vena cava, findings suggesting elevated central pressures, all concerning for cor pulmonale. The patient is on diuretic and we are addressing the primary issue, which is the lung pathology. 6. Folate deficiency. We will continue with replacement. Of note, the patient's V/Q scan is negative. There is a concern because of the dilated right ventricle, elevated D-dimer, there was a concern for chronic thromboembolic pulmonary disease to be ruled out and V/Q scan shows low probability. cc: David Mercer MD
--- NOTE | 2019-05-01 15:04 | PROVIDER PROGRESS NOTE ---
Progress Note Dr. Colón Progress Note/Pulmonary and or critical care Subjective: The patient is sitting in bed with no acute distress noted. He has been on NC 4L instead of VM 40% and tolerates well with SaO2 in low 90s. He apparently refused to use the BiPAP throughout the night last night. No family at the bedside. Input is appreciated from Dr. Mercer and other teams on the case. Objective: Vital Signs: T 98.0 (no fever in last 24 hours). CT 69, RR 22, BP 147/82 and SaO2 100% on NC 4L. I/O +540 ml Physical Examination: General: Lying in bed with no acute distress noted. HEENT: Normocephalic. Trachea midline. Mucosa pink and moist. Chest: Even and unlabored. Symmetrical excursion. Decreased air entry bilaterally. CVS: Regular rate and rhythm with S1 and S2 appreciated. Abdomen: Soft. Obese. Nontender. Normoactive bowel sounds noted. Extremities: No pedal edema. Neuro: Awake and alert. Able to answer questions and follow commands. Labs and Radiology: Laboratory Results 04/30/19 05/01/19 05/01/19 15:26 04:00 04:00 WBC 12.71 H D RBC 3.79 L Hgb 11.9 L Hct 38.7 L MCV 102.1 H MCH 31.4 H MCHC 30.7 L RDW Std Deviation 12.6 Plt Count 234 MPV 9.2 Immature Gran % (Auto) 0.2 Neut % (Auto) 94.9 H Lymph % (Auto) 2.1 L [place] % (Auto) 2.8 Eos % (Auto) 0.0 Baso % (Auto) 0.0 Immature Gran # (Auto) 0.02 Neut # (Auto) 12.07 H Lymph # (Auto) 0.27 L [place] # (Auto) 0.35 Eos # (Auto) 0.00 Baso # (Auto) 0.00 D-Dimer, Quantitative Specimen Type Sample Site pH pCO2 pO2 HCO3 Base Excess Kris Test A-a O2 Difference Lactate Liter Flow Blood Gas Modality FiO2 % Sodium 141 Potassium 3.1 L Chloride 93 L Carbon Dioxide 36 H Anion Gap 12 BUN 37 H Creatinine 1.2 Estimated GFR/1.73 m2 60 BUN/Creatinine Ratio 31 Glucose 151 H Calculated Osmolality 293 Calcium 9.0 Iron TIBC % Saturation Unsat Iron Binding Ferritin Total Bilirubin 0.34 AST 36 H ALT 22 Alkaline Phosphatase 44 Total Protein 6.8 Albumin 3.5 Globulin 3.3 Albumin/Globulin Ratio 1.1 Plasma Lactate 1.5 Vitamin B12 Folate 05/01/19 05/01/19 05/01/19 04:00 04:00 04:00 WBC RBC Hgb Hct MCV MCH MCHC RDW Std Deviation Plt Count MPV Immature Gran % (Auto) Neut % (Auto) Lymph % (Auto) [place] % (Auto) Eos % (Auto) Baso % (Auto) Immature Gran # (Auto) Neut # (Auto) Lymph # (Auto) [place] # (Auto) Eos # (Auto) Baso # (Auto) D-Dimer, Quantitative Specimen Type Sample Site pH pCO2 pO2 HCO3 Base Excess Kris Test A-a O2 Difference Lactate Liter Flow Blood Gas Modality FiO2 % Sodium Potassium Chloride Carbon Dioxide Anion Gap BUN Creatinine Estimated GFR/1.73 m2 BUN/Creatinine Ratio Glucose Calculated Osmolality Calcium Iron 44 L TIBC 213 % Saturation 21 Unsat Iron Binding 169 Ferritin 315 Total Bilirubin AST ALT Alkaline Phosphatase Total Protein Albumin Globulin Albumin/Globulin Ratio Plasma Lactate Vitamin B12 767 Folate 6.2 L 05/01/19 05/01/19 04:20 08:56 WBC RBC Hgb Hct MCV MCH MCHC RDW Std Deviation Plt Count MPV Immature Gran % (Auto) Neut % (Auto) Lymph % (Auto) [place] % (Auto) Eos % (Auto) Baso % (Auto) Immature Gran # (Auto) Neut # (Auto) Lymph # (Auto) [place] # (Auto) Eos # (Auto) Baso # (Auto) D-Dimer, Quantitative 1.46 H Specimen Type ARTERIAL Sample Site R RADIAL pH 7.42 pCO2 67 H* pO2 72 HCO3 37.0 H Base Excess 15.6 H Kris Test YES A-a O2 Difference 101.0 Lactate 1.60 Liter Flow 4.0 Blood Gas Modality [place] FiO2 % 36.0 Sodium Potassium Chloride Carbon Dioxide Anion Gap BUN Creatinine Estimated GFR/1.73 m2 BUN/Creatinine Ratio Glucose Calculated Osmolality Calcium Iron TIBC % Saturation Unsat Iron Binding Ferritin Total Bilirubin AST ALT Alkaline Phosphatase Total Protein Albumin Globulin Albumin/Globulin Ratio Plasma Lactate Vitamin B12 Folate Assessment: Acute on chronic hypoxemic respiratory failure. Improving. Patient tolerates NC 4L at this time. Acute hypercapnic respiratory failure. Slightly worsened. Patient refused BiPAP last night. COPD exacerbation. Suspected right basilar pneumonia vs. right basilar atelectasis. CXR today shows COPD with mild atelectasis/scarring in the lung bases. Probable right ventricular strain secondary to decompensated COPD and hypercapnic respiratory failure. Lung Scan-VQ NM today shows low probability for pulmonary embolus. Acute on chronic kidney disease. UTI. Urine culture on 04/29/19 grows Gram Negative Reji at this time. Prognosis is guarded. Plan: We applied HFNC. We will cycle HFNC and BiPAP at bedtime and as needed. We titrated oxygen and BiPAP settings to the patients needs per clinical protocol. We will monitor patients response closely. Antibiotics including azithromycin and ceftriaxone. IV solu-medrol. GI and DVT prophylaxis. We will follow up ABG tomorrow. Evaluation time in minutes: 32 minutes.
[2019-05-02] MEDS: SOLU-MEDROL IV SCH ×3 (01:16→18:21)
[2019-05-02] MEDS: DUONEB (A & A) INH SCH ×7 (03:42→23:24)
[2019-05-02] MEDS: NEURONTIN PO SCH ×3 (04:10→22:22)
[2019-05-02] MEDS: NORCO-10 PO PRN ×3 (05:48→22:23)
[2019-05-02] MEDS: PROTONIX PO SCH (06:04)
[2019-05-02 06:28] LABS: HEMOGLOBIN 12.3 g/dL (14.0-18.0); IMM GRAN# 0.04 X1000 (0.0-0.04); IMM GRAN% 0.3 % (0.0-0.5); LYMPH# 0.26 X1000 (1.2-3.4); LYMPH% 1.9 % (20.5-51.1); MCH 31.5 PG (27-31); MCHC 30.8 g/dL (33-37); MCV 102.6 FL (81-99); MONO# 0.29 X1000 (0.11-0.59); MONO% 2.1 % (1.7-9.3); MPV 9.2 FL (7.4-10.4); NEUT# 13.27 X1000 (1.4-6.5); NEUT% 95.7 % (42.2-75.2); PLT 280 X1000 (130-400); RDW 12.6 % (11.5-14.5); WBC 13.86 X1000 (4.8-10.8)
[2019-05-02 06:40] LABS: ALBUMIN 3.6 g/dL (3.5-5.0); CALCIUM 9.1 mg/dL (8.8-10.2); CREATININE 1.2 mg/dL (0.7-1.2); POTASSIUM 3.3 mmol/L (3.5-5.1); TOTAL BILIRUBIN 0.35 mg/dL (0.20-1.00); TOTAL PROTEIN 7.2 g/dL (6.3-8.3)
[2019-05-02 07:02] LABS: LYMPHS 2 % (21-51); MONO 2 % (1-9); SEGS 96 % (42-75)
[2019-05-02] MEDS ORDERED: KLOR-CON PO ONE (08:09)
[2019-05-02] MEDS: PATIENT'S OWN MED PO SCH (08:52)
[2019-05-02] MEDS: CRESTOR PO SCH (08:53)
[2019-05-02] MEDS: ZANAFLEX PO SCH ×3 (08:53→22:22)
[2019-05-02] MEDS: ASPIRIN EC PO SCH (08:53)
[2019-05-02] MEDS: ALDACTONE PO SCH (08:54)
[2019-05-02] MEDS: ICOSAPENT ETHYL PO SCH ×2 (08:55→22:24)
[2019-05-02] MEDS: LOVENOX SUBQ SCH (09:01)
[2019-05-02] MEDS: ROCEPHIN 1 GM in NS 50 ML IV SCH (09:01)
[2019-05-02] MEDS: PULMICORT INH SCH ×2 (10:53→20:06)
[2019-05-02] MEDS: ZITHROMAX 500 MG/NS 500 MG/250 ML IVPB IV SCH (11:24)
[2019-05-02] MEDS ORDERED: COZAAR PO ONE (12:11)
--- NOTE | 2019-05-02 12:30 | PROGRESS NOTE ---
DATE: 05/02/2019 SUBJECTIVE: I have seen and examined Mr. Levine today. Mr. Levine refers to be doing a whole lot better. His breathing is coming on. No new complaint. OBJECTIVE: Vital signs: Blood pressure is 169/86, pulse of 66, respiration is 19, temperature is 97.8 degrees. General: Mr. Levine is a 73-year-old elderly gentleman. He is in bed. He is not in any cardiopulmonary distress. He was actually going through a breathing treatment now. Chest: Air entry is bilaterally reduced. There is a prolonged expiratory phase of respiration. There is faint bilateral diffuse wheezing in both lungs. Cardiovascular: Regular rate and rhythm. No murmurs, no rubs, no gallops. GI/Abdomen: Soft, nontender. Bowel sounds present. Extremities: No pedal edema. 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 LABORATORY DATA: WBC is 13.86, hemoglobin is 12.3, platelet count of 280. Chemistry is also reviewed, unremarkable. The patient's ProBNP is down to 2859. X-RAY DATA: No recent imaging studies. ASSESSMENT: 1. Acute on chronic hypoxemic respiratory failure. Patient is currently on 6 liters of supplemental oxygen. He seems to be getting better. 2. Acute hypercarbic respiratory failure, improved. 3. Chronic obstructive pulmonary disease in moderate to severe exacerbation. Patient is on bronchodilation therapy, steroids and antimicrobials. 4. Right basilar infiltrate concerning for pneumonia. We will continue with the antibiotic coverage. 5. Cor pulmonale, improving. 6. Microcytosis with folate deficiency. We will continue with folate replacement. 7. Diastolic heart failure. Echocardiogram shows ejection fraction of 60% with Doppler suggesting grade 1 left ventricle dysfunction. 8. Proteus mirabilis in the urine. The patient denies any urinary symptoms. He is on antibiotics anyway for possible pneumonia/chronic obstructive pulmonary disease exacerbation and that will also hit, but the antibiotic is not for urinary tract infection. PLAN: So in general I think Mr. Levine is doing a lot better. He is still on about 6 L of supplemental oxygen, but he feels clinically better. We are going to transfer him from the ICU to the medical floor, continue with the current management and re-evaluate him in the morning. cc: David Mercer MD
--- NOTE | 2019-05-02 18:27 | PULMONOLOGY PROGRESS NOTE ---
DATE: 05/02/2019 Mr. Levine is sitting up at the bedside. He states that he is feeling much better. He feels like he is breathing better. He has no complaints . OBJECTIVE: Vital Signs: Blood pressure is 179/90, heart rate of 78, respirations are 18, temperature is 98.8 degrees with O2 saturations 96 to 98% on 6 L nasal cannula. HEENT: Pupils are equal, round, react to light. EOMs are intact. Sclerae anicteric. Head is normocephalic, atraumatic. Mucous membranes are moist. Neck: Supple with trachea midline . Cardiovascular: Regular rate and rhythm. S1 and S2 are appreciated. He has no lower extremity edema. Calves are nontender bilateral with peripheral pulses palpable x4 extremities. Pulmonary: He has decreased air entry with prolonged expiration. He does have diffuse expiratory wheezing throughout. Chest rise fall symmetric respiration. Gastrointestinal: Abdomen soft, nontender, nondistended, bowel sounds in all 4 quadrants. Neurologic: He is alert and oriented. LABS: WBC is 13.8 with hemoglobin 12.3, hematocrit 40 and platelets of 280,000. Sodium is 142, potassium 3.3, BUN 40, creatinine 1.2 with a glucose of 171. Urine culture revealed Proteus mirabilis. ASSESSMENT AND PLAN: 1. Acute on chronic hypoxemic respiratory failure. This is improving. He is refusing BiPAP at night. He is tolerating nasal cannula. 2. Acute hypercapnic respiratory failure as above. 3. Chronic obstructive pulmonary disease exacerbation. bronchodilators, steroids 4. Suspected right basilar pneumonia versus atelectasis. Rocephin and azithromycin. Blood cultures are negative. 5. Acute on chronic kidney disease. Creatinine is back to 1.2. 6. Diastolic heart failure with ejection fraction of 60%. 7. Cor pulmonale improving. Dictated by MARY JO Hines for Walt Hilliard MD cc: MARY JO Hines MD [facility]
[2019-05-02] MEDS: NORVASC PO SCH (22:23)
[2019-05-03] MEDS: SOLU-MEDROL IV SCH ×2 (02:45→17:06)
[2019-05-03] MEDS: DUONEB (A & A) INH SCH ×2 (03:07→08:23)
[2019-05-03] MEDS: NORCO-10 PO PRN ×2 (04:17→09:06)
[2019-05-03] MEDS: NEURONTIN PO SCH ×2 (04:17→17:05)
[2019-05-03] MEDS: PROTONIX PO SCH ×2 (05:30→06:33)
[2019-05-03 08:00] LABS: HEMATOCRIT 40.1 % (42.0-52.0); HEMOGLOBIN 12.1 g/dL (14.0-18.0); IMM GRAN# 0.04 X1000 (0.0-0.04); IMM GRAN% 0.3 % (0.0-0.5); LYMPH% 2.5 % (20.5-51.1); MCH 31.1 PG (27-31); MCHC 30.2 g/dL (33-37); MCV 103.1 FL (81-99); MONO# 0.24 X1000 (0.11-0.59); MPV 9.3 FL (7.4-10.4); NEUT# 11.19 X1000 (1.4-6.5); NEUT% 95.2 % (42.2-75.2); PLT 251 X1000 (130-400); RBC 3.89 XMIL (4.7-6.1); RDW 12.5 % (11.5-14.5); WBC 11.77 X1000 (4.8-10.8)
[2019-05-03] MEDS: PULMICORT INH SCH (08:23)
[2019-05-03 08:42] LABS: ALB/GLOB RATIO 1.2; ALBUMIN 3.6 g/dL (3.5-5.0); CALCIUM 8.9 mg/dL (8.8-10.2); CREATININE 1.2 mg/dL (0.7-1.2); POTASSIUM 3.9 mmol/L (3.5-5.1); TOTAL BILIRUBIN 0.46 mg/dL (0.20-1.00); TOTAL PROTEIN 6.6 g/dL (6.3-8.3)
[2019-05-03] MEDS ORDERED: COZAAR PO SCH (09:00)
[2019-05-03] MEDS ORDERED: LOVENOX SUBQ SCH (09:00)
[2019-05-03] MEDS: CRESTOR PO SCH (09:01)
[2019-05-03] MEDS: ZANAFLEX PO SCH ×2 (09:01→17:04)
[2019-05-03] MEDS: ALDACTONE PO SCH (09:01)
[2019-05-03] MEDS: ASPIRIN EC PO SCH (09:01)
[2019-05-03] MEDS: NORVASC PO SCH (09:02)
--- NOTE | 2019-05-03 10:09 | DISCHARGE SUMMARY ---
ADMISSION DATE: 04/29/2019 DISCHARGE DATE: 05/03/2019 DISPOSITION: Home. FOLLOWUP: 1. Patient's PCP. 2. Dr. Colón. CONSULTATION DURING THIS ADMISSION: Pulmonary Medicine was consulted, patient was seen by Dr. Colón, followed up by Dr. Hilliard. INVASIVE PROCEDURES DONE DURING THIS ADMISSION: None. IMAGING STUDIES OF SIGNIFICANCE: 1. A chest x-ray did show right basilar atelectasis versus small infiltrate. A repeat showed no procedure post complication. 2. An echocardiogram showed an ejection fraction of 60%, grade 1 diastolic dysfunction. Right ventricle appears mildly enlarged. 3. V/Q scan was unremarkable. ADMISSION DIAGNOSES: 1. Chronic obstructive pulmonary disease. 2. Right basilar pneumonia. 3. Possible acute congestive heart failure. 4. Pain syndrome. DIAGNOSES AT THE TIME OF DISCHARGE: 1. Acute on chronic hypoxemic respiratory failure. 2. Acute hypercarbic respiratory failure, improved. 3. Chronic obstructive pulmonary disease with moderate to severe exacerbation on admission. 4. Right basilar infiltrate concerning for pneumonia. 5. Cor pulmonale. 6. Macrocytosis with folate deficiency. 7. Diastolic heart failure with echocardiogram showing ejection fraction of 60% with grade I diastolic dysfunction. 8. Proteus mirabilis asymptomatic bacteriuria. 9. Uncontrolled hypertension. DISCHARGE MEDICATIONS: 1. Gabapentin 400 mg p.o. daily. 2. Tizanidine. 3. Combivent 1 puff 4 times per day. 4. Aspirin 81 mg daily. 5. [place] 10 every 4 hours. 6. Crestor 40 mg p.o. daily. 7. Spironolactone 25 mg p.o. daily. 8. Losartan mg p.o. daily. 9. cefdnir 300 mg b.i.d. 10. Doxycycline 100 mg b.i.d. 11. Amlodipine 5 mg b.i.d. 12. Prednisone 40 mg to be titrated down. 13. Pantoprazole 40 mg p.o. daily. PRESENTING COMPLAINT: Shortness of breath. HISTORY OF PRESENT COMPLAINT: Mr. Levine is a 73-year-old gentleman who has multiple comorbidities including hypertension, COPD, chronic pain syndrome, came to the emergency room because of shortness of breath, cough with greenish sputum. He was found to be in COPD exacerbation and was admitted for further medical care. HOSPITAL COURSE: Initially, Mr. Levine was in [place], he was found to have a pCO2 level of 72 on ABG. Presenting saturation showed that he was 76%. He was transferred from [place] to [facility] for higher level of care. Mr. Levine was admitted to the ICU initially on BiPAP, started on IV broad- spectrum antibiotics, steroids, bronchodilation therapy and Pulmonary Medicine was consulted. Mr. Levine continues to improve from a respiratory standpoint. He was subsequently transferred from the ICU to the medical floor. Multiple ABGs were done. The recent one which was done 3 days ago showed a pCO2 is down to 67. Mr. Levine was also found to have elevated pro B on admission. An echocardiogram showed a diastolic dysfunction, but also the right ventricle was also slightly dilated and the IVC showed increased venous in the central system. This was all concerning for right heart failure. Mr. Levine was also started on some diuretic therapy. Yesterday, his pro B had dropped down to 2859. This morning, Mr. Levine referred to be feeling a whole lot better. Still has some wheezing but not like before, but he said his breathing has improved tremendously. We think he is fairly stable to be discharged. He needs to follow up with Pulmonary Medicine. He has been given the contact to follow up with Dr. Colón. He has also been advised to be compliant with his medications. All the discharge instructions have been discussed with him. He voiced understanding. TIME SPENT FOR DISCHARGE: 38 minutes. cc: David Mercer MD [facility]ITAL[facility]anch[facility]
[2019-05-03 10:53] LABS: BANDS 2 % (0-1); LYMPHS 2 % (21-51); SEGS 96 % (42-75)
[2019-05-03 10:54] LABS: HYPOCHROM 1+
[2019-05-03 12:17] VITALS: BP 184/78
[2019-05-03] MEDS: ICOSAPENT ETHYL PO SCH (17:03)
[2019-05-03] MEDS: ZITHROMAX 500 MG/NS 500 MG/250 ML IVPB IV SCH (17:06)
[2019-05-03] MEDS: ROCEPHIN 1 GM in NS 50 ML IV SCH (17:06)
[2019-05-03] MEDS: PATIENT'S OWN MED PO SCH (17:08)
--- NOTE | 2019-05-03 17:34 | PULMONOLOGY PROGRESS NOTE ---
DATE: 05/03/2019 SUBJECTIVE: This The patient is sitting up at the bedside. He states he feels much better. He is hoping to go home today. OBJECTIVE: Blood pressure is 180/90 with heart rate of 80, respirations 19, temperature is 97.3 degrees oral with O2 saturations 93%. Eyes: Pupils are equal, round, react to light. EOMs are intact, sclerae anicteric. HEENT: Head is normocephalic, atraumatic. Mucous membranes are moist. Neck: Supple with trachea midline. Cardiovascular: Regular rate and rhythm. S1, S2 appreciated. He has no lower extremity edema. Calves are nontender bilateral with peripheral pulses palpable x4 extremities. No murmur is noted. Pulmonary: Breath sounds are noted with an prolonged expiration. He does have some wheezing, although is less than yesterday. Chest rise falls symmetric with respiration. He has no increased work of breathing noted. Gastrointestinal abdomen is soft, nontender, nondistended with bowel sounds in all 4 quadrants. Neurologic he is alert and oriented. LABS: WBC is 11.7 with hemoglobin 12.1, hematocrit 40.1 and platelets 251,000. Sodium 146, potassium 3.9, BUN 38, creatinine 1.2 with a glucose of 144. IMPRESSION: This is a 73-year-old male with: 1. Acute on chronic hypercarbic hypoxemic respiratory failure, improving. 2. Acute hypercapnic respiratory failure. 3. Chronic obstructive pulmonary disease. Continue Duo Nebs and steroids. 4. Suspect right basilar pneumonia versus atelectasis. Continue antibiotics of Rocephin and azithromycin. Of note, blood cultures are negative. 5. Acute on chronic kidney disease. Creatinine is back to baseline 1.2. 6. Diastolic heart failure with ejection fraction of 60%. 7. Cor pulmonale, improved. 8. Proteus urinary tract infection. Dictated by MARY JO Hines for Walt Hilliard MD cc: MARY JO Hines MD [facility]
--- NOTE | 2019-05-06 09:04 | Extremity Venous Study ---
PROCEDURE NAME: Venous U/S Bilateral Legs - 05/01/2019 REFERRING PHYSICIAN: David Mercer MD. READING PHYSICIAN: Ramiro Whitlock MD. TILER'S ASSISTANT: Geneva Giron RVT. INDICATION: DVT and elevated D-dimer. FINDINGS: The deep and superficial veins of both lower extremities were imaged throughout their course. They are compressible, patent and without thrombus. INTERPRETATION: No DVT or SVT of either lower extremity. There is a cyst in the right popliteal fossa. cc: MD David Paula MD
--- NOTE | 2019-05-07 10:06 | PROVIDER DOCUMENTATION ---
This chart was entered by Yani Luna Scribe, acting as scribe for Dimas Alonzo MD. HPI-Respiratory General - General Chief Complaint: Shortness of Breath Stated Complaint: copd Time Seen by Provider: 04/28/19 23:57 Source: patient, EMS Allergies/Adverse Reactions: Patient Allergies Allergy/AdvReac Type Severity Reaction Status Date / Time No Known Allergies Allergy Verified 04/29/19 01:09 Home Medications: Home Medication List Medication Instructions Recorded Confirmed Last Taken Type Gabapentin 400 mg PO Q8HR 07/05/17 04/29/19 09/18/18 History Tizanidine HCl [Zanaflex] 4 mg PO TID 09/16/18 04/29/19 09/18/18 History Aspirin [Aspir-Low] 1 tab PO DAILY 04/29/19 04/29/19 Unknown History Hydrocodone Bitartrate [Hysingla 1 tab PO DAILY 04/29/19 04/29/19 Unknown History ER] Hydrocodone/Acetaminophen [[place] 1 ea PO 4XDAY 04/29/19 04/29/19 Unknown History 10-325 Tablet] Icosapent Ethyl [Vascepa] 2 cap PO BID 04/29/19 04/29/19 Unknown History Ipratropium/Albuterol Sulfate 1 puff INH 4XDAY 04/29/19 04/29/19 Unknown History [Combivent Respimat 20-100 Mcg] Rosuvastatin Calcium 1 tab PO DAILY 04/29/19 04/29/19 Unknown History Amlodipine [Norvasc] 5 mg PO BID #120 tab 05/03/19 Unknown Rx CefDINIR [Omnicef] 300 mg PO BID 7 Days #14 cap 05/03/19 Unknown Rx Doxycycline 100 mg PO BID #14 tab 05/03/19 Unknown Rx Losartan [Cozaar] 50 mg PO DAILY #120 tab 05/03/19 Unknown Rx Pantoprazole [Protonix] 40 mg PO DAILY@0700 #30 tab 05/03/19 Unknown Rx Prednisone 10 mg PO DAILY #45 tab 05/03/19 Unknown Rx Spironolactone [Aldactone] 25 mg PO DAILY #120 tab 05/03/19 Unknown Rx - History of Present Illness-Resp Nature of Presenting Problem: 73 yowm presents w/ems to er w/cc copd exacerbation, occ prod cough, sob for 2 days. pt wear home o2 on 2L. was on 90% on o2. ems duoneb enroute. pt has tremors, cynosis in bilat hands, pallor face, audible wheezes and diaphoresis in room. Severity in ED: reports: moderate Onset/Duration: reports: 2 days ago Timing: reports: still present Exposure: reports: unknown cause Cough Quality/Degree: reports: productive cough (occ) Current Respiratory Medication Therapy: Initiated other (home o2 2L) Associated Symptoms: reports: cough, shortness of breath Review of Systems - Adult - REVIEW OF SYSTEMS - ADULT ROS:: limited per condition Constitutional: reports: no symptoms reported. denies: fever, fatique, night sweats Eyes: reports: no symptoms reported Ears, Nose, Mouth & Throat: reports: no symptoms reported Cardiovascular: reports: no symptoms reported Respiratory: reports: see HPI, cough, excessive sputum production (occ), shortness of breath, wheezing. denies: hemoptysis, pleurisy Gastrointestinal: reports: no symptoms reported Genitourinary: reports: no symptoms reported Musculoskeletal: reports: no symptoms reported Integumentary: reports: no symptoms reported Neurological: reports: no symptoms reported Psychiatric: reports: no symptoms reported Endocrine: reports: no symptoms reported Hematologic/Lymphatic: reports: no symptoms reported Allergic/Immunologic: reports: no symptoms reported All Other Systems: Reviewed and Negative Past History - Adult - PAST MEDICAL HISTORY-ADULT Review of Records: reports: Nursing Assessment Review, Medications Reviewed, Social history reviewed & non-contributory. Major Childhood Illnesses: reports: denies history Cardiovascular: reports: HTN Respiratory: reports: COPD Gastrointestinal: reports: denies history Obstetrical/Gynecological: reports: denies history Genitourinary: reports: denies history Musculoskeletal: reports: denies history Neurological: reports: denies history Endocrine/Immune: reports: denies history Other Conditions: reports: denies history - PRIOR SURGERIES/PROCEDURES Surgical/Procedure History: reports: hernia repair, other (right ear repair) - IMMUNIZATION STATUS Childhood Immunizations: See Nurse Assessment Flu Vaccine: See Nurse Assessment - FAMILY HISTORY Family History: reviewed, not pertinent - SOCIAL HISTORY Smoking: other (former smoker) Substance Use: alcohol Physical Exam-General - PHYSICAL EXAM-ADULT Initial Vital Signs Reviewed: Yes - CONSTITUTIONAL General Appearance: alert, moderate distress, slow to respond. negative: appears well, no apparent distress, anxious - EYES Eyes: PERRL/EOMI - HEAD, EARS, NOSE, MOUTH & THROAT HENMT: normocephalic/atraumatic, moist mucous membranes - NECK Neck: non-tender, full range of motion, supple, normal inspection - RESPIRATORY Respiratory: chest non-tender, no pleuratic chest pain, respiratory distress, decreased breath sounds, accessory muscle use, rhonchi, wheezing (audible), other (tachypnea). negative: lungs clear, normal breath sounds, no respiratory distress, no accessory muscle use, stridor, pain on inspiration - CARDIOVASCULAR Cardiovascular: normal peripheral pulses, no gallop, no JVD, no murmur, tachycardia. negative: regular rate, rhythm, no edema, friction rub, i rregularly irregular - GASTROINTESTINAL (ABDOMEN) Abdominal Exam: normal bowel sounds, non tender, soft - MUSCULOSKELETAL Back Exam: normal inspection Extremity: normal range of motion, non-tender, no calf tenderness, pelvis stable , swelling (bilat LE edema +1,+2). negative: normal inspection, abnormal NV exam, deformity, erythema Peripheral Pulses: dorsalis-pedis (R): 2+, dorsalis-pedis (L): 2+ - SKIN Integumentary: normal turgor, abrasion(s) (left elbow), cyanosis (bilat hands), diaphoresis, pallor (face). negative: normal color, warm/dry, ecchymosis, erythema, rash - NEUROLOGIC Neurologic: no motor/sensory deficits, other (tremors unsure if baseline) - PSYCHIATRIC Psych/Mental Status: normal mood/affect, normal thought content, normal thought process, oriented x 3 Progress - PLAN OF CARE/RESULTS Progress/Plan/Lab Results: Orders Category Date Time Status Admit - [facility] Routine AdmDCTranf 04/29/19 04:20 Active Cardiac Monitoring DIRECTED Care 04/29/19 00:02 Completed Central Line Placement per MD/ NOW Care 04/29/19 01:40 Completed Salguero Cath Insertion ORDERED Care 04/29/19 01:26 Completed NEWS Score >or=5:Order NEWS Bundle S.O. NOW Care 04/28/19 23:49 Completed Oxygen Therapy- ED Nursing DIRECTED Care 04/29/19 00:01 Completed Oxygen Therapy- ED Nursing DIRECTED Care 04/29/19 00:02 Completed Saline Loc NOW Care 04/29/19 00:02 Completed CHEST-1 VIEW [RAD] Stat Exams 04/29/19 00:06 Completed CHEST-PORTABLE [RAD] Stat Exams 04/29/19 02:55 Completed ABG [RESP] Routine Lab 04/29/19 00:01 Completed BLOOD CULTURE [BLDCUL] Stat Lab 04/29/19 03:38 Completed CBC WITH ELECTRONIC DIFF [HEME] Stat Lab 04/29/19 00:51 Completed CK PROFILE [SP CHEM] Stat Lab 04/29/19 00:51 Completed COMPREHENSIVE METABOLIC PANEL [CHEM] Stat Lab 04/29/19 00:51 Completed PRO B-NATRIURETIC PEPTIDE Stat Lab 04/29/19 00:51 Completed PROTIME WITH INR [COAG] Stat Lab 04/29/19 09:50 Completed PTT [COAG] Stat Lab 04/29/19 09:50 Completed TROPONIN T HIGH SENSITIVITY Stat Lab 04/29/19 00:51 Completed URINE DRUG SCREEN PL Stat Lab 04/29/19 01:00 Completed Albuterol [Albuterol Neb] Med 04/28/19 23:51 Discontinued 5 mg .ROUTE .STK-MED ONE Albuterol [Albuterol Neb] Med 04/29/19 00:24 Discontinued 5 mg INH NOW ONE Heparin Flush Med 04/29/19 02:24 Discontinued 1,000 unit .ROUTE .STK-MED ONE Heparin Flush Med 04/29/19 02:38 Discontinued 500 unit .ROUTE .STK-MED ONE Aerosol Treatments Stat Oth 04/29/19 00:01 Completed Aerosol Treatments Stat Oth 04/29/19 00:25 Completed BIPAP Stat Oth 04/29/19 00:04 Active Oxygen Device Routine Oth 04/29/19 04:22 Completed EKG [EKG] Stat Ther 04/29/19 00:02 Draft Transfer/Admit Order [TRANSFER] Routine Transfer 04/29/19 04:19 Completed Result Diagrams: 05/03/19 06:55 05/03/19 06:55 - REASSESSMENT Reassessment #1 Time Reassessed: 01:04 Status: improving (pt vitals have imptoved. 100% on bipap. cyanosis gone from hands) - EKG 1 Time of EKG reading by physician:: 04:38 EKG Read and Signed by:: Dimas Alonzo Rate: 81 Rhythm: sinus with pac QRS: normal [place] Interval: normal ST Wave: normal Procedures - CENTRAL LINE Consent Form Signed?: Yes Time-Out Verification Completed?: Yes Central Line Lumen: triple Central Line Procedure Prep: Kit Utilized Patient Position (To prevent Air Embolism): Trendelenburg (SC/IJ) Central Line Position: subclavian (R) Ultrasound Guided?: No Hat, mask, sterile gown, & sterile gloves worn by physician?: Yes Site scrubbed vigorously for 30 seconds? (Groin: 2 min): Yes Anesthetic: 1% Volume of Anesthetic (ml's): 5 Complications: See comments (unsucessful attempt no complication) - ADDITIONAL PROCEDURES Additional Procedure: OTHER (i/o with 5cc xylocaine x2 unablle to flush too large) Departure - Departure Date of Disposition Decision: 04/29/19 Time of Disposition Decision: 04:20 DIAGNOSIS: Shortness of breath, Pneumonia COPD (chronic obstructive pulmonary disease) Qualifiers: COPD type: unspecified COPD Qualified Code(s): J44.9 - Chronic obstructive pulmonary disease, unspecified Disposition: ADMITTED INPATIENT 09 Certified Medical Emergency: Emergent Condition: Fair - Critical Care Note This patient required my direct & personal management of CC.: Yes Attestation - Physician/ DONNA Attestation Patient care was provided by Advanced Practice Provider:: No The physician spent face to face time with patient:: Yes Advanced Practice Provider documentation review:: Supervising physician onsite and consulted in the evaluation and care of this patient. The physician did have a face to face encounter with the patient. This chart was documented by the indicated scribe, (Yani Luna Scribe) and accurately reflects the services I performed and decisions made by me, Dimas Alonzo MD, as attested by the provider's signature.
== END 2019-05-03 17:09 | disposition home health service (06) | DRG 871 ==
LOC: P.ED 23:57 → ICU 04-29 05:29 → SUATTDRO 04-29 05:29 → 3N 05-02 16:23
PROVIDERS: ATTEND Internal Medicine